=== PATIENT | male | born 1965 | race American Indian/Alaskan Native ===

== ENCOUNTER 2021-01-09 13:11 | Emergency (ER) | payer MEDICARE ==
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
== END 2021-01-09 14:33 | disposition home or self-care (01) ==
LOC: ED 13:11

== ENCOUNTER 2022-03-12 00:54 | Emergency (ER) | payer MEDICARE ==
[2022-03-12 05:03] LABS: Basophils # (Auto) 0.1 K/mm3 (0.0-0.1); Basophils % (Auto) 1.3 % (0.0-1.8); Eosinophils # (Auto) 0.1 K/mm3 (0.0-0.4); Eosinophils % (Auto) 2.5 % (0.0-4.3); Hemoglobin 10.7 gm/dl (11.8-15.2); Lymphocytes # (Auto) 2.4 K/mm3 (1.2-5.4); Lymphocytes % (Auto) 46.3 % (13.4-35.0); Mean Corpuscular HGB Conc 32 % (32-34); Mean Corpuscular Volume 95 fl (84-94); Monocytes # (Auto) 0.8 K/mm3 (0.0-0.8); Monocytes % (Auto) 14.7 % (0.0-7.3); Platelet Count 239 K/mm3 (140-440); Red Blood Count 3.46 M/mm3 (3.65-5.03); Red Cell Distribution Width 16.5 % (13.2-15.2)
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
[2022-03-12 05:45] LABS: Blood Urea Nitrogen 14 mg/dL (9-20); Calcium 8.7 mg/dL (8.4-10.2); Hemolysis Index 6
[2022-03-12 05:55] LABS: BUN/Creatinine Ratio 20
[2022-03-12] MEDS ORDERED: HALOPERIDOL LACTATE 5 MG/1 ML INJ IM PRN (09:12)
[2022-03-12] MEDS ORDERED: MIDAZOLAM 2 MG/2 ML INJ IM PRN (09:12)
[2022-03-12 09:31] LABS: Color,Urine Yellow (Yellow)
[2022-03-12 09:39] LABS: Amphetamine Screen,Urine Negative; Bacteria,Urine 1+ /HPF (Negative); Benzodiazepines Screen,Urine Negative; Cannabinoid Screen,Urine Negative; Cocaine Screen,Urine Negative; Methadone Screen,Urine Negative; Mucus,Urine FEW /HPF; Opiate Screen,Urine Negative
--- NOTE | 2022-03-12 10:18 | Consultation ---
History of Present Illness - Reason for Consult Consult date: 03/12/22 Reason for consult: AMS - History of Present Psychiatric Illness The patient was seen today. He is observed banging his head against the wall prior to the evaluation. He is laughing inappropriately and speaking nonsensical. The patient is delusional and having flight of ideas. He says he tried to jump out of the ambulance. He then starts laughing out loud. The patient says "I'm from [place]." He says "I'm half horse and half man. Superman is my father." The patient is rambling about things I can't be made out. He then says "there are a lot of voices in my head." The patient shouts, "old lina li*ch." PAST PSYCHIATRIC HISTORY Unable to obtain PAST MEDICAL HISTORY: None reported Family Psychiatric History: None reported or documented SOCIAL HISTORY Unable to obtain REVIEW OF SYSTEMS Unable to obtain MENTAL STATUS EXAMINATION General Appearance and Behavior: Age appropriate, bizarre Cooperation: cooperative Psychomotor Behavior: Psychomotor normal Mood: Affect and affective range: laughing inappropriately Thought Process: flight of ideas, disorganized Thought Content: hallucinations, delusions Speech: Nonsensical Suicidal Ideation: Yes Homicidal Ideation: Denies Hallucinations: Auditory Delusions: Yes Impulse Control: Poor Insight and Judgment: Poor insight and judgment Memory: Limited Attention: Limited Orientation: Alert, oriented Assessment and Plan (2) Bipolar Disorder Treatment 1013 Restart [place] 300mg po BID [place] Risperidone 0.5mg po BID Start Mirtazepine 15mg po qhs Sitter: Defer to primary Medical: per primary Disposition: Recommend acute inpatient psychiatric treatment. Will follow. Thank you for this consult. Case staffed with Dr. Tapia Medications and Allergies Allergies Allergy/AdvReac Type Severity Reaction Status Date / Time No Known Allergies Allergy Verified 02/27/22 12:42 Home Medications Medication Instructions Recorded Confirmed Last Taken Type Benztropine [Cogentin] 5 mg PO BID 09/30/15 09/30/15 Unknown History [place] Carbonate 300 mg PO BID 09/30/15 09/30/15 Unknown History Salicylic Acid [Callus Removers] 1 each TP DAILY #2 adh..patch 06/01/18 Unknown Rx Ibuprofen [Motrin] 600 mg PO Q8H PRN #20 tablet 06/04/18 Unknown Rx Ibuprofen [Motrin] 600 mg PO Q8H PRN #12 tablet 06/05/18 Unknown Rx Active Meds: Active Medications Haloperidol Lactate (Haloperidol Lactate 5 Mg/1 Ml Inj) 5 mg IM Q6HR PRN PRN Reason: Agitation Last Admin: 03/12/22 09:58 Dose: 5 mg Midazolam HCl (Midazolam 2 Mg/2 Ml Inj) 2 mg IM Q6HR PRN PRN Reason: Agitation Last Admin: 03/12/22 09:58 Dose: 2 mg Mental Status Exam - Vital signs Last Vital Signs Temp 98.4 F 03/12/22 08:44 Pulse 90 03/12/22 08:44 Resp 16 03/12/22 08:44 BP 119/76 03/12/22 08:44 Pulse Ox 98 03/12/22 08:45 Results Result Diagrams: 03/12/22 04:34 03/12/22 04:34 Abnormal lab results 03/12/22 03/12/22 03/12/22 Range/Units 04:34 04:34 04:34 RBC 3.46 L (3.65-5.03) M/mm3 Hgb 10.7 L (11.8-15.2) gm/dl Hct 33.0 L (35.5-45.6) % MCV 95 H (84-94) fl RDW 16.5 H (13.2-15.2) % Lymph % (Auto) 46.3 H (13.4-35.0) % [place] % (Auto) 14.7 H (0.0-7.3) % Seg Neutrophils % 35.2 L (40.0-70.0) % Chloride 108.6 H (98-107) mmol/L Creatinine 0.7 L (0.8-1.3) mg/dL Urine WBC (Auto) (0.0-6.0) /HPF Salicylates < 0.3 L (2.8-20.0) mg/dL Acetaminophen (10.0-30.0) ug/mL 03/12/22 03/12/22 Range/Units 04:34 08:29 RBC (3.65-5.03) M/mm3 Hgb (11.8-15.2) gm/dl Hct (35.5-45.6) % MCV (84-94) fl RDW (13.2-15.2) % Lymph % (Auto) (13.4-35.0) % [place] % (Auto) (0.0-7.3) % Seg Neutrophils % (40.0-70.0) % Chloride (98-107) mmol/L Creatinine (0.8-1.3) mg/dL Urine WBC (Auto) 8.0 H (0.0-6.0) /HPF Salicylates (2.8-20.0) mg/dL Acetaminophen 5.0 L (10.0-30.0) ug/mL All other labs normal.
--- NOTE | 2022-03-12 13:39 | Event Note ---
Date: 03/12/22 Patient seen and examined. He is in seclusion. As needed medications have been ordered. He was deemed medically suitable for psychiatric evaluation during his initial ER evaluation. He does not appear to be acutely decompensated at this point in time from medical standpoint. Holding orders initiated. As needed medications ordered. Awaiting psychiatric placement and disposition at this time. Nursing team, vital signs, ER documentation and psychiatric documentation are reviewed and appreciated. He is COVID-19 negative via our test swab Vital Signs 03/12/22 03/12/22 03/12/22 00:54 05:51 08:44 Temperature 98 F 98.0 F 98.4 F Pulse Rate 104 H 90 Respiratory 18 16 Rate Blood Pressure 138/65 Blood Pressure 119/76 [Left] O2 Sat by Pulse 99 96 98 Oximetry 03/12/22 08:45 Temperature Pulse Rate Respiratory Rate Blood Pressure Blood Pressure [Left] O2 Sat by Pulse 98 Oximetry Lab Results 03/12/22 03/12/22 03/12/22 Range/Units 04:34 04:34 04:34 WBC 5.1 (4.5-11.0) K/mm3 RBC 3.46 L (3.65-5.03) M/mm3 Hgb 10.7 L (11.8-15.2) gm/dl Hct 33.0 L (35.5-45.6) % MCV 95 H (84-94) fl MCH 31 (28-32) pg MCHC 32 (32-34) % RDW 16.5 H (13.2-15.2) % Plt Count 239 (140-440) K/mm3 Lymph % (Auto) 46.3 H (13.4-35.0) % [place] % (Auto) 14.7 H (0.0-7.3) % Eos % (Auto) 2.5 (0.0-4.3) % Baso % (Auto) 1.3 (0.0-1.8) % Lymph # (Auto) 2.4 (1.2-5.4) K/mm3 [place] # (Auto) 0.8 (0.0-0.8) K/mm3 Eos # (Auto) 0.1 (0.0-0.4) K/mm3 Baso # (Auto) 0.1 (0.0-0.1) K/mm3 Seg Neutrophils % 35.2 L (40.0-70.0) % Seg Neutrophils # 1.8 (1.8-7.7) K/mm3 Sodium 139 (137-145) mmol/L Potassium 4.1 (3.6-5.0) mmol/L Chloride 108.6 H (98-107) mmol/L Carbon Dioxide 22 (22-30) mmol/L Anion Gap 13 mmol/L BUN 14 (9-20) mg/dL Creatinine 0.7 L (0.8-1.3) mg/dL Estimated GFR > 60 ml/min BUN/Creatinine Ratio 20 % Glucose 95 (75-100) mg/dL Calcium 8.7 (8.4-10.2) mg/dL Urine Color (Yellow) Urine Turbidity (Clear) Specific [place] (Man) (1.003-1.030) Ur Protein (Man) (Negative) mg/dL Ur Ketones (Man) (Negative) Ur Nitrite (Man) (Negative) Urine Bilirubin (Man) (Negative) Leukocyte Esterase (Man) (Negative) Urine WBC (Auto) (0.0-6.0) /HPF Urine RBC (Auto) (0.0-6.0) /HPF U Epithel Cells (Auto) (0-13.0) /HPF Urine Bacteria (Auto) (Negative) /HPF Urine RBC (Manual) (Negative) Urine Mucus /HPF Salicylates < 0.3 L (2.8-20.0) mg/dL Urine Opiates Screen Urine Methadone Screen Acetaminophen (10.0-30.0) ug/mL Ur Barbiturates Screen Ur Phencyclidine Scrn Ur Amphetamines Screen U Benzodiazepines Scrn Urine Cocaine Screen U Marijuana (THC) Screen Drugs of Abuse Note SARS-CoV-2 (PCR) (Negative) 03/12/22 03/12/22 03/12/22 Range/Units 04:34 08:09 08:29 WBC (4.5-11.0) K/mm3 RBC (3.65-5.03) M/mm3 Hgb (11.8-15.2) gm/dl Hct (35.5-45.6) % MCV (84-94) fl MCH (28-32) pg MCHC (32-34) % RDW (13.2-15.2) % Plt Count (140-440) K/mm3 Lymph % (Auto) (13.4-35.0) % [place] % (Auto) (0.0-7.3) % Eos % (Auto) (0.0-4.3) % Baso % (Auto) (0.0-1.8) % Lymph # (Auto) (1.2-5.4) K/mm3 [place] # (Auto) (0.0-0.8) K/mm3 Eos # (Auto) (0.0-0.4) K/mm3 Baso # (Auto) (0.0-0.1) K/mm3 Seg Neutrophils % (40.0-70.0) % Seg Neutrophils # (1.8-7.7) K/mm3 Sodium (137-145) mmol/L Potassium (3.6-5.0) mmol/L Chloride (98-107) mmol/L Carbon Dioxide (22-30) mmol/L Anion Gap mmol/L BUN (9-20) mg/dL Creatinine (0.8-1.3) mg/dL Estimated GFR ml/min BUN/Creatinine Ratio % Glucose (75-100) mg/dL Calcium (8.4-10.2) mg/dL Urine Color Yellow (Yellow) Urine Turbidity Clear (Clear) Specific [place] (Man) 1.020 (1.003-1.030) Ur Protein (Man) Negative (Negative) mg/dL Ur Ketones (Man) Negative (Negative) Ur Nitrite (Man) Negative (Negative) Urine Bilirubin (Man) Negative (Negative) Leukocyte Esterase (Man) Negative (Negative) Urine WBC (Auto) 8.0 H (0.0-6.0) /HPF Urine RBC (Auto) 1.0 (0.0-6.0) /HPF U Epithel Cells (Auto) 1.0 (0-13.0) /HPF Urine Bacteria (Auto) 1+ (Negative) /HPF Urine RBC (Manual) Negative (Negative) Urine Mucus Few /HPF Salicylates (2.8-20.0) mg/dL Urine Opiates Screen Urine Methadone Screen Acetaminophen 5.0 L (10.0-30.0) ug/mL Ur Barbiturates Screen Ur Phencyclidine Scrn Ur Amphetamines Screen U Benzodiazepines Scrn Urine Cocaine Screen U Marijuana (THC) Screen Drugs of Abuse Note SARS-CoV-2 (PCR) Negative (Negative) 03/12/22 Range/Units 08:29 WBC (4.5-11.0) K/mm3 RBC (3.65-5.03) M/mm3 Hgb (11.8-15.2) gm/dl Hct (35.5-45.6) % MCV (84-94) fl MCH (28-32) pg MCHC (32-34) % RDW (13.2-15.2) % Plt Count (140-440) K/mm3 Lymph % (Auto) (13.4-35.0) % [place] % (Auto) (0.0-7.3) % Eos % (Auto) (0.0-4.3) % Baso % (Auto) (0.0-1.8) % Lymph # (Auto) (1.2-5.4) K/mm3 [place] # (Auto) (0.0-0.8) K/mm3 Eos # (Auto) (0.0-0.4) K/mm3 Baso # (Auto) (0.0-0.1) K/mm3 Seg Neutrophils % (40.0-70.0) % Seg Neutrophils # (1.8-7.7) K/mm3 Sodium (137-145) mmol/L Potassium (3.6-5.0) mmol/L Chloride (98-107) mmol/L Carbon Dioxide (22-30) mmol/L Anion Gap mmol/L BUN (9-20) mg/dL Creatinine (0.8-1.3) mg/dL Estimated GFR ml/min BUN/Creatinine Ratio % Glucose (75-100) mg/dL Calcium (8.4-10.2) mg/dL Urine Color (Yellow) Urine Turbidity (Clear) Specific [place] (Man) (1.003-1.030) Ur Protein (Man) (Negative) mg/dL Ur Ketones (Man) (Negative) Ur Nitrite (Man) (Negative) Urine Bilirubin (Man) (Negative) Leukocyte Esterase (Man) (Negative) Urine WBC (Auto) (0.0-6.0) /HPF Urine RBC (Auto) (0.0-6.0) /HPF U Epithel Cells (Auto) (0-13.0) /HPF Urine Bacteria (Auto) (Negative) /HPF Urine RBC (Manual) (Negative) Urine Mucus /HPF Salicylates (2.8-20.0) mg/dL Urine Opiates Screen Negative Urine Methadone Screen Negative Acetaminophen (10.0-30.0) ug/mL Ur Barbiturates Screen Negative Ur Phencyclidine Scrn Negative Ur Amphetamines Screen Negative U Benzodiazepines Scrn Negative Urine Cocaine Screen Negative U Marijuana (THC) Screen Negative Drugs of Abuse Note Disclamer SARS-CoV-2 (PCR) (Negative)
[2022-03-12] MEDS: risperiDONE 0.25 MG TAB PO SCH ×2 (15:58→22:17)
[2022-03-12] MEDS: LITHIUM CARBONATE 300 MG CAP PO SCH ×2 (15:58→22:17)
[2022-03-12] MEDS ORDERED: MIRTAZAPINE 15 MG TAB PO SCH (22:00)
[2022-03-13] MEDS: LITHIUM CARBONATE 300 MG CAP PO SCH (10:04)
[2022-03-13] MEDS: risperiDONE 0.25 MG TAB PO SCH (10:04)
--- NOTE | 2022-03-13 10:04 | Progress Note ---
Subjective - Reason for Consult Consult date: 03/13/22 Reason for consult: psychosis - Chief Complaint Chief complaint: The patient was seen today. His thoughts are more organized today. The patient says he has Alzheimer's Disease. He says he tried to run into traffic. The patient says he just got out of [place] for suicidal thoughts. He says "I don't get my meds unless I come to the hospital." The patient says he is depressed. 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 The patient says "yea, sometimes" when asked if he still felt suicidal. He says "I wanted to run in front of a car yesterday." He says he hears voices, but can't make them out. The patient shows me his left index finger. It is necrotic at the tip. He says it is numb and he can hardly move it. The patient says "my fingernails and toe nails are falling off. It hurts real bad." I informed Charge Nurse Jo Ann about the patient's condition. She said she would inform the ER doc. REVIEW OF SYSTEMS Unable to obtain MENTAL STATUS EXAMINATION General Appearance and Behavior: Age appropriate, bizarre Cooperation: cooperative Psychomotor Behavior: Psychomotor normal Mood: Affect and affective range: laughing inappropriately Thought Process: circumstantial Thought Content: Speech: Nonsensical Suicidal Ideation: Yes Homicidal Ideation: Denies Hallucinations: Auditory Delusions: Yes Impulse Control: Poor Insight and Judgment: Poor insight and judgment Memory: Limited Attention: Limited Orientation: Alert, oriented Assessment and Plan (2) Bipolar Disorder Treatment 1013 [place] 300mg po BID Increased Risperidone 1mg po BID Mirtazepine 15mg po qhs Sitter: Defer to primary Medical: per primary Disposition: Recommend acute inpatient psychiatric treatment. Will follow. Thank you for this consult. Case staffed with Dr. Tapia Mental Status Exam - Vital signs Last Vital Signs Temp 98.6 F 03/13/22 00:00 Pulse 106 H 03/13/22 00:00 Resp 18 03/13/22 00:00 BP 113/81 03/13/22 00:00 Pulse Ox 98 03/13/22 00:00
[2022-03-13] MEDS ORDERED: risperiDONE 0.25 MG TAB PO SCH (10:30)
--- NOTE | 2022-03-13 12:26 | Event Note ---
Date: 03/13/22 S: No events reported overnight O: Vital Signs - 8 hr 03/13/22 10:15 Temperature 97.3 F L Pulse Rate 89 Respiratory 16 Rate Blood Pressure 98/51 [Left] O2 Sat by Pulse 100 Oximetry A: Bipolar disorder P: 1013/awaiting inpatient psych
[2022-03-13] MEDS ORDERED: risperiDONE 1 MG TAB PO SCH (22:00)
--- NOTE | 2022-03-14 10:01 | Progress Note ---
Subjective - Reason for Consult Consult date: 03/14/22 Reason for consult: psychosis - Chief Complaint Chief complaint: The patient was seen today. He is lucid. He is calm, and cooperative. He says "Ma'am, can I please go home today." He says "I'm not hearing voices or nothing now. Not thinking about jumping in no traffic." He denies SI/HI. He says "none of that. I'm not gone do none of that." The patient says "I feel so much better now. I'm not in no pain or nothing." REVIEW OF SYSTEMS Unable to obtain MENTAL STATUS EXAMINATION General Appearance and Behavior: Age appropriate, bizarre Cooperation: cooperative Psychomotor Behavior: Psychomotor normal Mood: much better Affect and affective range: euthymic Thought Process: goal directed Thought Content: None Speech: Normal tone and pace Suicidal Ideation: Denies Homicidal Ideation: Denies Hallucinations: Denies Delusions: None elicited Impulse Control: Limited Insight and Judgment: Limited insight and judgment Memory: Limited Attention: Limited Orientation: Alert, oriented Assessment and Plan (2) Bipolar Disorder Treatment d/c 1013 [place] 300mg po BID Risperidone 1mg po BID Mirtazepine 15mg po qhs Sitter: Defer to primary Medical: per primary Disposition: Do not Recommend acute inpatient psychiatric treatment. The patient understands that if SI/HI are to arise he is to seek immediate assistance. The ball worker to further discuss safety plan and give all necessary resources. Will sign off. Thank you for this consult. Case staffed with Dr. Tapia Mental Status Exam - Vital signs Last Vital Signs Temp 99.0 F 03/13/22 20:38 Pulse 80 03/13/22 20:38 Resp 18 03/13/22 20:38 BP 102/68 03/13/22 20:38 Pulse Ox 100 03/13/22 20:38
[2022-03-14 10:58] VITALS: BP 138/78
--- NOTE | 2022-03-14 12:36 | Event Note ---
Date: 03/14/22 The patient was evaluated in the emergency department for symptoms described in the history of present illness. He/she was evaluated in the context of the global COVID-19 pandemic, which necessitated consideration that the patient might be at risk for infection with the virus that causes COVID-19. Institutional protocols and algorithms that pertain to the evaluation of patients at risk for COVID-19 are in a state of rapid change based on information released by regulatory bodies including the CDC and federal and state organizations. These policies and algorithms were followed during the patient's care in the emergency department. Please note that these policies, procedures and recommendations changed on a rapid basis. Laboratory studies, vital signs, nursing documentation, ER documentation, and psychiatric documentation are reviewed and appreciated. Nursing team reports no acute events this morning or concerns. The patient is awake and ambulating and does not appear to be in any acute distress. The patient was deemed medically suitable for psychiatric disposition and placement during his initial ER evaluation. The patient continues to remain medically suitable for psychiatric placement and disposition. He is currently pending psychiatric placement. The psychiatric team have recommended that this patient does not meet criteria for 1013 hold or involuntary confinement. They are recommending discharge from a psychiatric perspective. The patient will therefore be discharged with outpatient follow-up, instructions, and appropriate prescriptions. Vital Signs 03/12/22 03/12/22 03/12/22 00:54 05:51 08:44 Temperature 98 F 98.0 F 98.4 F Pulse Rate 104 H 90 Respiratory 18 16 Rate Blood Pressure 138/65 Blood Pressure 119/76 [Left] O2 Sat by Pulse 99 96 98 Oximetry 03/12/22 03/13/22 03/13/22 08:45 00:00 10:15 Temperature 98.6 F 97.3 F L Pulse Rate 106 H 89 Respiratory 18 16 Rate Blood Pressure Blood Pressure 113/81 98/51 [Left] O2 Sat by Pulse 98 98 100 Oximetry 03/13/22 03/14/22 20:38 10:56 Temperature 99.0 F 98.2 F Pulse Rate 80 71 Respiratory 18 18 Rate Blood Pressure Blood Pressure 102/68 138/78 [Left] O2 Sat by Pulse 100 99 Oximetry Lab Results 03/12/22 03/12/22 03/12/22 Range/Units 04:34 04:34 04:34 WBC 5.1 (4.5-11.0) K/mm3 RBC 3.46 L (3.65-5.03) M/mm3 Hgb 10.7 L (11.8-15.2) gm/dl Hct 33.0 L (35.5-45.6) % MCV 95 H (84-94) fl MCH 31 (28-32) pg MCHC 32 (32-34) % RDW 16.5 H (13.2-15.2) % Plt Count 239 (140-440) K/mm3 Lymph % (Auto) 46.3 H (13.4-35.0) % [place] % (Auto) 14.7 H (0.0-7.3) % Eos % (Auto) 2.5 (0.0-4.3) % Baso % (Auto) 1.3 (0.0-1.8) % Lymph # (Auto) 2.4 (1.2-5.4) K/mm3 [place] # (Auto) 0.8 (0.0-0.8) K/mm3 Eos # (Auto) 0.1 (0.0-0.4) K/mm3 Baso # (Auto) 0.1 (0.0-0.1) K/mm3 Seg Neutrophils % 35.2 L (40.0-70.0) % Seg Neutrophils # 1.8 (1.8-7.7) K/mm3 Sodium 139 (137-145) mmol/L Potassium 4.1 (3.6-5.0) mmol/L Chloride 108.6 H (98-107) mmol/L Carbon Dioxide 22 (22-30) mmol/L Anion Gap 13 mmol/L BUN 14 (9-20) mg/dL Creatinine 0.7 L (0.8-1.3) mg/dL Estimated GFR > 60 ml/min BUN/Creatinine Ratio 20 % Glucose 95 (75-100) mg/dL Calcium 8.7 (8.4-10.2) mg/dL Urine Color (Yellow) Urine Turbidity (Clear) Specific [place] (Man) (1.003-1.030) Ur Protein (Man) (Negative) mg/dL Ur Ketones (Man) (Negative) Ur Nitrite (Man) (Negative) Urine Bilirubin (Man) (Negative) Leukocyte Esterase (Man) (Negative) Urine WBC (Auto) (0.0-6.0) /HPF Urine RBC (Auto) (0.0-6.0) /HPF U Epithel Cells (Auto) (0-13.0) /HPF Urine Bacteria (Auto) (Negative) /HPF Urine RBC (Manual) (Negative) Urine Mucus /HPF Salicylates < 0.3 L (2.8-20.0) mg/dL Urine Opiates Screen Urine Methadone Screen Acetaminophen (10.0-30.0) ug/mL Ur Barbiturates Screen Ur Phencyclidine Scrn Ur Amphetamines Screen U Benzodiazepines Scrn Urine Cocaine Screen U Marijuana (THC) Screen Drugs of Abuse Note SARS-CoV-2 (PCR) (Negative) 03/12/22 03/12/22 03/12/22 Range/Units 04:34 08:09 08:29 WBC (4.5-11.0) K/mm3 RBC (3.65-5.03) M/mm3 Hgb (11.8-15.2) gm/dl Hct (35.5-45.6) % MCV (84-94) fl MCH (28-32) pg MCHC (32-34) % RDW (13.2-15.2) % Plt Count (140-440) K/mm3 Lymph % (Auto) (13.4-35.0) % [place] % (Auto) (0.0-7.3) % Eos % (Auto) (0.0-4.3) % Baso % (Auto) (0.0-1.8) % Lymph # (Auto) (1.2-5.4) K/mm3 [place] # (Auto) (0.0-0.8) K/mm3 Eos # (Auto) (0.0-0.4) K/mm3 Baso # (Auto) (0.0-0.1) K/mm3 Seg Neutrophils % (40.0-70.0) % Seg Neutrophils # (1.8-7.7) K/mm3 Sodium (137-145) mmol/L Potassium (3.6-5.0) mmol/L Chloride (98-107) mmol/L Carbon Dioxide (22-30) mmol/L Anion Gap mmol/L BUN (9-20) mg/dL Creatinine (0.8-1.3) mg/dL Estimated GFR ml/min BUN/Creatinine Ratio % Glucose (75-100) mg/dL Calcium (8.4-10.2) mg/dL Urine Color Yellow (Yellow) Urine Turbidity Clear (Clear) Specific [place] (Man) 1.020 (1.003-1.030) Ur Protein (Man) Negative (Negative) mg/dL Ur Ketones (Man) Negative (Negative) Ur Nitrite (Man) Negative (Negative) Urine Bilirubin (Man) Negative (Negative) Leukocyte Esterase (Man) Negative (Negative) Urine WBC (Auto) 8.0 H (0.0-6.0) /HPF Urine RBC (Auto) 1.0 (0.0-6.0) /HPF U Epithel Cells (Auto) 1.0 (0-13.0) /HPF Urine Bacteria (Auto) 1+ (Negative) /HPF Urine RBC (Manual) Negative (Negative) Urine Mucus Few /HPF Salicylates (2.8-20.0) mg/dL Urine Opiates Screen Urine Methadone Screen Acetaminophen 5.0 L (10.0-30.0) ug/mL Ur Barbiturates Screen Ur Phencyclidine Scrn Ur Amphetamines Screen U Benzodiazepines Scrn Urine Cocaine Screen U Marijuana (THC) Screen Drugs of Abuse Note SARS-CoV-2 (PCR) Negative (Negative) 03/12/22 Range/Units 08:29 WBC (4.5-11.0) K/mm3 RBC (3.65-5.03) M/mm3 Hgb (11.8-15.2) gm/dl Hct (35.5-45.6) % MCV (84-94) fl MCH (28-32) pg MCHC (32-34) % RDW (13.2-15.2) % Plt Count (140-440) K/mm3 Lymph % (Auto) (13.4-35.0) % [place] % (Auto) (0.0-7.3) % Eos % (Auto) (0.0-4.3) % Baso % (Auto) (0.0-1.8) % Lymph # (Auto) (1.2-5.4) K/mm3 [place] # (Auto) (0.0-0.8) K/mm3 Eos # (Auto) (0.0-0.4) K/mm3 Baso # (Auto) (0.0-0.1) K/mm3 Seg Neutrophils % (40.0-70.0) % Seg Neutrophils # (1.8-7.7) K/mm3 Sodium (137-145) mmol/L Potassium (3.6-5.0) mmol/L Chloride (98-107) mmol/L Carbon Dioxide (22-30) mmol/L Anion Gap mmol/L BUN (9-20) mg/dL Creatinine (0.8-1.3) mg/dL Estimated GFR ml/min BUN/Creatinine Ratio % Glucose (75-100) mg/dL Calcium (8.4-10.2) mg/dL Urine Color (Yellow) Urine Turbidity (Clear) Specific [place] (Man) (1.003-1.030) Ur Protein (Man) (Negative) mg/dL Ur Ketones (Man) (Negative) Ur Nitrite (Man) (Negative) Urine Bilirubin (Man) (Negative) Leukocyte Esterase (Man) (Negative) Urine WBC (Auto) (0.0-6.0) /HPF Urine RBC (Auto) (0.0-6.0) /HPF U Epithel Cells (Auto) (0-13.0) /HPF Urine Bacteria (Auto) (Negative) /HPF Urine RBC (Manual) (Negative) Urine Mucus /HPF Salicylates (2.8-20.0) mg/dL Urine Opiates Screen Negative Urine Methadone Screen Negative Acetaminophen (10.0-30.0) ug/mL Ur Barbiturates Screen Negative Ur Phencyclidine Scrn Negative Ur Amphetamines Screen Negative U Benzodiazepines Scrn Negative Urine Cocaine Screen Negative U Marijuana (THC) Screen Negative Drugs of Abuse Note Disclamer SARS-CoV-2 (PCR) (Negative)
[2022-03-14] MEDS: LITHIUM CARBONATE 300 MG CAP PO SCH (13:23)
== END 2022-03-14 14:59 | disposition home or self-care (01) ==
LOC: EEVIPCON 00:54 → ED 00:54
DX: F31.9 Bipolar disorder, unspecified (principal); Z20.822 Contact with and (suspected) exposure to COVID-19; F20.9 Schizophrenia, unspecified; J44.9 Chronic obstructive pulmonary disease, unspecified; Z79.899 Other long term (current) drug therapy
CPT/HCPCS: 36415; 80048; 80307; 81001; 85025; 96372; 99284; J1630; J2250; U0003; 80320; G0480